=== PATIENT | male | born 1985 | race Caucasian/White ===

== ENCOUNTER → 2017-12-01 | Outpatient (CLI) | payer OTHER ==
[2017-12-01 11:34] LABS: BASO # 0.1 10^3/uL (0.0-0.2); BASO % 1.4 % (0.0-1.0); EOS # 0.4 10^3/uL (0.0-0.50); EOS % 7.1 % (0.0-3.0); HEMATOCRIT 48.2 % (42.0-52.0); HEMOGLOBIN 17.3 g/dl (14.0-18.0); IMMATURE GRANULOCYTE % 0.2 % (0-0); LYMPH % 33.9 % (24.0-44.0); MEAN CORPUSCULAR HEMOGLOBIN 30.4 pg (27.0-33.0); MEAN CORPUSCULAR HGB CONC 35.9 g/dl (32.0-36.5); MEAN CORPUSCULAR VOLUME 84.6 fl (80.0-96.0); MONO # 0.4 10^3/uL (0.0-0.8); MONO % 7.3 % (0.0-5.0); NEUTROPHILS # 2.9 10^3/uL (1.8-7.7); NEUTROPHILS % 50.1 % (36.0-66.0); PLATELET COUNT, AUTOMATED 275 10^3/uL (150-450); RED CELL DISTRIBUTION WIDTH 12.5 % (11.5-14.5); WHITE BLOOD COUNT 5.8 10^3/uL (4.0-10.0)
[2017-12-07 00:07] LABS: TRYPTASE 5.8 ug/L (2.2-13.2)
[2017-12-07 00:07] LABS: I003-IgE YELLOW JACKET 5.51 kU/L (Class IV); I004-IgE PAPER WASP 4.08 kU/L (Class IV); I005-IgE HORNET, YELLOW 5.13 kU/L (Class IV)
== END ==
LOC: M LAB 10:53
DX: T78.3XXA Angioneurotic edema, initial encounter (principal); T63.441A Toxic effect of venom of bees, accidental (unintentional), initial encounter; J30.89 Other allergic rhinitis
CPT/HCPCS: 82785

== ENCOUNTER → 2019-07-03 | Outpatient (REF) | payer OTHER | LOC: M SFHCPLAZ 17:18 | PROVIDERS: ATTEND Dermatology | DX: D23.39 Other benign neoplasm of skin of other parts of face (principal) ==